=== PATIENT | female | born 1970 | race Caucasian/White ===

== ENCOUNTER → 2017-10-29 11:31 | Outpatient (CLI) | payer OTHER, SELFPAY ==
--- NOTE | 2017-10-29 11:15 | EMB_PTH ---
PATIENT: BINTA HARP LOC: [facility] U#:[id number] AGE/SX: 54/F ROOM: RE10/29/[address]: Dr. Thanh Rubio MD : [id number] BED: DIS: SPEC #: [id number] RECD: 10/29/17 15:09 STATUS: KAMILLA MARCO ANTONIO #: [id number] ERIKA: 10/29/17 11:[address]: Thanh Rubio DEPT: SURGICAL PATHOLOGY RECD BY: Igor Morton Tissues: Endometrium, NOS Procedures: Surgery Specimen Level IV HEADER OPERATION: Endometrial biopsy PRE-OP DIAGNOSIS: N92.6 TISSUE SUBMITTED: Endometrial biopsy MICROSCOPIC DIAGNOSIS Endometrial biopsy: Disordered proliferative endometrium. ANILA:lara 10/31/17 MICROSCOPIC DESCRIPTION Slides are reviewed. GROSS DESCRIPTION Received in fixative is one container labeled with the patient's name and designated EM biopsy. The specimen consists of multiple fragments of hemorrhagic soft tissue that in aggregate measure 3 x 2.5 x 0.3 cm. The specimen is totally submitted in one cassette. / SJ:lara 10/30/17 TC:5 CPT: [id number]
[2017-10-29 15:42] LABS: Thyroid Stim Hormone (TSH) 1.45 uIU/mL (0.358-3.74)
[2017-10-31 12:18] LABS: HPV Reflexed? NOT INDICATED
== END ==
PROVIDERS: Family Provider Obstetrics & Gynecology; PCP Obstetrics & Gynecology; Visit Provider Obstetrics & Gynecology
DX: N85.8 Other specified noninflammatory disorders of uterus (principal); N92.6 Irregular menstruation, unspecified; Z12.4 Encounter for screening for malignant neoplasm of cervix
CPT/HCPCS: 36415; 84443; 88175; 88305; G0145

== ENCOUNTER → 2017-10-29 15:21 | Outpatient (CLI) | payer SELFPAY | PROVIDERS: Family Provider Family Medicine; Visit Provider Obstetrics & Gynecology | DX: N92.6 Irregular menstruation, unspecified (principal) ==